=== PATIENT | male | born 1990 ===

== ENCOUNTER 2022-01-16 11:18 | Emergency (ER) | payer SELFPAY ==
[2022-01-16] MEDS ORDERED: Lidocaine 1% 5 ML VIAL INJECT ONE (14:03)
== END 2022-01-16 15:29 | disposition home or self-care (01) ==
LOC: MW.ED 11:18
DX: L02.412 Cutaneous abscess of left axilla (principal); I10 Essential (primary) hypertension; E11.9 Type 2 diabetes mellitus without complications; Z79.899 Other long term (current) drug therapy
CPT/HCPCS: 10060; 87070; 87205; 99283; 99283-25

== ENCOUNTER 2022-01-19 14:16 | Emergency (ER) | payer SELFPAY | END 2022-01-19 17:33 | disposition home or self-care (01) | LOC: MW.ED 14:16 | DX: Z48.00 Encounter for change or removal of nonsurgical wound dressing (principal); I10 Essential (primary) hypertension; E11.9 Type 2 diabetes mellitus without complications; Z79.84 Long term (current) use of oral hypoglycemic drugs | CPT/HCPCS: 99282 ==

== ENCOUNTER 2022-02-19 10:47 | Emergency (ER) | payer SELFPAY | END 2022-02-19 12:54 | disposition home or self-care (01) | LOC: MW.ED 10:47 | DX: R04.0 Epistaxis (principal); E78.00 Pure hypercholesterolemia, unspecified; I10 Essential (primary) hypertension; E11.9 Type 2 diabetes mellitus without complications; Z79.899 Other long term (current) drug therapy | CPT/HCPCS: 30903; 36415; 82947; 85014; 85018; 99283 ==